=== PATIENT | male | born 2000 | race Caucasian/White ===

== ENCOUNTER 2023-09-03 20:03 | Emergency (ER) | payer MEDICAID, SELFPAY ==
[2023-09-03 20:05] VITALS: BP 141/73; PULSE 90; RESP 18; TEMP 36.7; O2SAT 100; BMI 27.3
--- NOTE | 2023-09-03 20:42 | EX.ED.VIS.UR ---
HPI HPI - URI History of Present Illness Chief Complaint: Sore Throat Detail of Chief Complaint: Sore throat and right ear pain Informant: patient Narrative Narrative: Patient presents the emergency department with complaint of a sore throat that started 3 days ago. Today he developed pain and decreased hearing in the right ear. He denies fevers. He denies significant cough. He had a roommate that was ill 3 to 4 days ago. Patient complains of pain with swallowing. ROS ROS ED Review of Systems ROS Unobtainable: other Constitutional Constitutional ED: Reports lethargy; Denies chills, fever(s), sweats or weight loss Eyes Eyes: Denies blurry vision, change in vision or diplopia ENT ENT ED: Reports ear pain and sore throat; Denies rhinorrhea Cardiovascular Cardiovascular: Denies chest pain, orthopnea or racing heartbeat Respiratory/Chest Respiratory/Chest: Denies cough, dyspnea, dyspnea on exertion, orthopnea or sputum Gastrointestinal Gastrointestinal: Denies abdominal pain, diarrhea, nausea or vomiting Genitourinary Genitourinary ED: Denies dysuria, hematuria or urinary frequency Musculoskeletal Musculoskeletal: Denies arthralgias, back pain, myalgias or neck pain Integumentary Denies abscess, Abrasions or rash Neurologic Neurologic: Denies headache(s) or weakness Psychiatric Psychiatric: Denies anxiety, depression or suicidal thoughts Endocrine Endocrinology: Denies polydipsia, polyphagia or polyuria Hematologic/Lymphatic Hematologic/Lymphatic: Denies easy bleeding, easy bruising or lymphadenopathy Allergic/Immunologic Allergic/Immunologic ED: Denies mouth swelling, tongue swelling or urticaria PFSH PFSH Medical History no medical history Home Medications amoxicillin 500 mg tablet 500 mg PO TID #30 tabs 09/03/23 [Rx Last Taken Unknown] ibuprofen 200 mg capsule (Motrin IB) 600 mg (3 x 200 mg) PO Q8H PRN fever or pain #30 caps 09/03/23 [Rx Last Taken Unknown] Allergy/AdvReac Type Severity Reaction Status Date / Time No Known Allergies Allergy Verified 09/03/23 20:07 Surgical History no surgical history Social History Smoking Status: Unknown if ever smoked EXAM Physical Exam Const Vital Signs: 09/03/23 20:05 09/03/23 22:05 Temperature 98.0 F Temperature Source Temporal Pulse Rate 90 90 Respiratory Rate 18 18 Blood Pressure 141/73 H 141/73 H Blood Pressure Mean 95 95 Pulse Ox 100 100 Oxygen Delivery Method Room Air Positive well nourished and well developed General Appearance ED: well developed and NAD HEENT Reports moist mucous membranes HEENT Narrative: Right TM erythematous and difficult to visualize landmarks. No evidence of perforation. No blood in the ear canal. Pharynx-diffuse erythema. Uvula midline. No trismus. Tonsils are small and I do not appreciate any exudates. Patient does have anterior cervical lymphadenopathy. normocephalic and atraumatic; Negative for trauma or tenderness Eyes PERRL and EOMs intact bilaterally General Eye ED: Negative for pale conjunctiva or scleral icterus Neck no lymphadenopathy, supple and no JVD General: Negative for tenderness Chest Wall inspection of chest normal and palpation of chest normal Chest: Negative for tenderness Resp normal respiratory effort and clear to auscultation bilaterally Effort and Inspection: Negative for respiratory distress or pain with movement Auscultation: Negative for rhonchi, wheezes or diminished lung sounds Cardio regular rate, regular rhythm, S1 normal heart sound, S2 normal heart sound and no murmurs Peripheral Pulses: pulses 2+ throughout GI normal to inspection, nondistended, normoactive bowel sounds, soft to palpation, non-tender, non-distended and no masses Back/Spine no CVA tenderness and no thoracic nor lumbar tenderness Extremity normal to inspection General Extremety ED: Negative for edema General Extremity: Negative for edema Neuro oriented x3, CN's II-XII intact bilaterally, no sensory deficits noted and gait normal Sensorium / Orientation: awake, alert, oriented to person, oriented to place and oriented to time Motor Exam: strength 5/5 throughout and strength abnormal Psych mental status grossly normal Skin no rashes or lesions noted and no wounds MDM MDM MDM Narrative Medical decision making narrative: Patient presents with a sore throat and ear pain. Has had no fever. Clinically looks well and nontoxic appearing. I did obtain a rapid strep screen which was negative. Patient will be started on amoxicillin and ibuprofen. Will refer to ENT for follow-up. Discharge Plan Triage Chief Complaint: Sore Throat ED Provider: Marcy Ritter Dx/Rx/DC Orders Clinical Impression: Acute right otitis media, Pharyngitis Instructions: ED Otitis Media Antibiotic ..., ED Pharyngitis, Report Pending Prescriptions: New amoxicillin 500 mg tablet 500 mg PO TID Qty: 30 0RF ibuprofen [Motrin IB] 200 mg capsule 600 mg PO Q8H PRN (Reason: fever or pain) Qty: 30 0RF Primary Care Provider: Care Physician,No Primary Referrals: Juan J Chandler MD [Med Staff - Active Staff] - 3-5 Days NOT,DEFINED [Non-Staff] - Disposition Disposition: Home, Self Care Discharge Date/Time: 09/03/23 22:06
[2023-09-03] MEDS: Ibuprofen 600 MG Tablet PO (21:37)
[2023-09-03] MEDS: AMOXICILLIN 500 MG CAPSULE PO (21:37)
[2023-09-03 22:05] VITALS: BP 141/73; PULSE 90; RESP 18; O2SAT 100
== END 2023-09-03 22:06 | disposition home or self-care (01) ==
PROVIDERS: Emergency Provider Emergency Medicine; Visit Provider Emergency Medicine
DX: H66.91 Otitis media, unspecified, right ear (principal); J02.9 Acute pharyngitis, unspecified
CPT/HCPCS: 87880; 99283